=== PATIENT | female | born 1950 | race Caucasian/White ===

== ENCOUNTER 2018-01-28 14:17 | Inpatient (IN) | payer OTHER ==
[~2018-01-28] VITALS: Ht 157.5 cm; Wt 53.1 kg
== END 2018-02-10 20:12 | disposition home or self-care (01) | DRG 394 ==
LOC: ER 14:17 → MEDI 01-29 12:33
PROVIDERS: Colon & Rectal Surgery
PROC: 30233N1 Transfusion of Nonautologous Red Blood Cells into Peripheral Vein, Percutaneous Approach (ICD-10-PCS; 2018-02-03)
PROC: 0DJD7ZZ Inspection of Lower Intestinal Tract, Via Natural or Artificial Opening (ICD-10-PCS; 2018-02-04)
PROC: 0W3P8ZZ Control Bleeding in Gastrointestinal Tract, Via Natural or Artificial Opening Endoscopic (ICD-10-PCS; principal; 2018-02-04 07:00)
DX: K62.7 Radiation proctitis (principal); K51.511 Left sided colitis with rectal bleeding; E86.0 Dehydration; D50.0 Iron deficiency anemia secondary to blood loss (chronic); Y84.2 Radiological procedure and radiotherapy as the cause of abnormal reaction of the patient, or of later complication, without mention of misadventure at the time of the procedure